=== PATIENT | female | born 1980 | race Caucasian/White ===

== ENCOUNTER 2017-08-21 07:46 | Outpatient (CLI) | payer OTHER | END 2017-08-21 07:49 | disposition home or self-care (01) | LOC: SONOGRAMA 07:46 | DX: E04.1 Nontoxic single thyroid nodule (principal) ==

== ENCOUNTER 2018-05-05 11:05 | Outpatient (CLI) | payer OTHER | END 2018-05-05 11:17 | disposition home or self-care (01) | LOC: SONOGRAMA 11:05 | DX: E04.1 Nontoxic single thyroid nodule (principal) ==